=== PATIENT | female | born 2000 | race Caucasian/White ===

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

== ENCOUNTER 2024-03-13 16:27 | Emergency (ER) | payer BC, SELFPAY ==
[2024-03-13 16:35] VITALS: BP 123/80; PULSE 97; RESP 18; TEMP 37.1; O2SAT 100
--- NOTE | 2024-03-13 17:49 | ED.SKABFB ---
HPI - Skin/Abscess/Foreign Bdy General Chief complaint: Skin/Abscess/Foreign Body Stated complaint: Rash/Right Leg Time Seen by Provider: 03/13/24 17:49 Source: patient, RN notes reviewed and old records reviewed Mode of arrival: ambulatory Limitations: no limitations History of Present Illness HPI narrative: 23 year old female who presents to [facility] care with complaints of being stung in her right lower posterior thigh region by ground hornets 11 days ago. She reports that 3 days ago she noted swelling and increased redness to the area with some itching to area. Patient reports that she has been applying hydrocortisone ointment to skin area and also has been taking Benadryl. MD complaint: insect bite/sting and other (swelling and redness) Onset (ago): day(s) (11 days ago stung 3 days of increased redness with some swelling) Location: RLE Severity: moderate Quality: pruritic Treatments prior to arrival: other (hydrocortoisone ointment and Benadryl) Related Data Allergies Allergy/AdvReac Type Severity Reaction Status Date / Time Sulfa (Sulfonamide Allergy Unknown RASH Verified 12/10/20 13:49 Antibiotics) Review of Systems Review of Systems: CONSTITUTIONAL: Denies fever, chills, or sweats. CARDIOVASCULAR: Denies chest pain, palpitations, or edema. RESPIRATORY: Denies cough or dyspnea. GASTROINTESTINAL: Denies abdominal pain, nausea, vomiting SKIN: Reports redness and swelling to area on posterior leg from being stung by ground hornets is not draining and no vesicles or pustules present is itchy MUSCULOSKELETAL: Denies myalgia. NEUROLOGIC: Denies headache, numbness All systems reviewed & are unremarkable except as noted in HPI and below PMFSH Past Medical History Medical History Anxiety Asthma Social History Social History Smoking status: Never smoker Alcohol intake: current Alcohol use details: social Substance use type: does not use Living arrangements: with family Gender identity (if verbalized by the patient): Female Comments At time of signature, agree with nursing past medical, surgical, social and family history. There is no relevant family history pertinent to the presenting complaint Exam Narrative: GENERAL: Well-appearing, well-nourished, and in no acute distress. HEAD: Normocephalic, atraumatic. EYES: PERRLA and EOMI. ENT: Nares clear, no rhinorrhea or epistaxis. Mucous membranes moist. NECK: Supple. CHEST: Clear to auscultation. No respiratory distress. HEART: Regular rate and rhythm. No murmur heard. Normal peripheral pulses. ABDOMEN: Soft, nontender, nondistended, normal active bowel sounds. EXTREMITIES: Normal range of motion. No edema. SKIN: Warm, dry. Erythema, induration,no tenderness reported with no warmth to area, 6cm x3.5 cm with no vesicles or any drainage, NEURO: No focal deficits. Alert and oriented x3. Course Course Emergency Course: Patient is aware of diagnosis, understands and agrees to treatment plan. Anticipatory guidance given. Patient agrees to follow-up as directed and is aware of reasons to seek care at the emergency department. Portions of this record may have been created with voice recognition software Level of Care: Express Care Visit Vital Signs Vital signs: Vital Signs Temperature 37.1 C 03/13/24 16:35 Pulse Rate 97 03/13/24 16:35 Respiratory Rate 18 03/13/24 16:35 Blood Pressure 123/80 03/13/24 16:35 Pulse Oximetry 100 03/13/24 16:35 Oxygen Delivery Room Air 03/13/24 16:35 Temperature 37.1 C 03/13/24 16:35 Pulse Rate 97 03/13/24 16:35 Respiratory Rate 18 03/13/24 16:35 Blood Pressure 123/80 03/13/24 16:35 Pulse Oximetry 100 03/13/24 16:35 Oxygen Delivery Room Air 03/13/24 16:35 Reviewed MDM - Skin/Abscess/Foreign Bdy MDM Narrative Medical decision making narrative: Does not ap
== END 2024-03-13 18:07 | disposition home or self-care (01) ==
PROVIDERS: Emergency Provider Registered Nurse
DX: L25.9 Unspecified contact dermatitis, unspecified cause (principal); T63.461A Toxic effect of venom of wasps, accidental (unintentional), initial encounter; J45.909 Unspecified asthma, uncomplicated
CPT/HCPCS: 99213; G0463